=== PATIENT | male | born 1975 | race Caucasian/White ===

== ENCOUNTER 2019-07-27 04:36 | Inpatient (IN) | payer OTHER ==
[~2019-07-27] VITALS: Ht 177.8 cm; Wt 86.2 kg
--- OUTSIDE RECORDS SUMMARY | 2019-07-27 04:38 | XMS ---
PreManage Notification: DALIA DAS Security Legal Referee Events No recent Security Events currently on file [facility] There are no care providers on record at this time. Robby has no Care Guidelines for this patient. Alyssia VISIT COUNT (12 MO.) 1 [facility] Farrell TOTAL 1 NOTE: Visits indicate total known visits. ED/UCC VISIT TRACKING (12 MO.) 07/27/2019 04:37 [facility] [place] TYPE: Emergency COMPLAINT: - ABDOMINAL PAIN INPATIENT VISIT TRACKING (12 MO.) No inpatient visits to display in this time frame [id number]
[2019-07-27] MEDS ORDERED: BACTRIM DS TAB1 EACH PO (04:40)
[2019-07-27] MEDS ORDERED: HYDROXYZINE HCL25 MG PO (04:41)
[2019-07-27] MEDS ORDERED: IBUPROFEN200 M1 PO (04:42)
[2019-07-27] MEDS ORDERED: MELATONIN3 MG PO (04:42)
--- NOTE | 2019-07-27 07:50 | NUR ---
PT ARRIVED FROM ED AT THIS TIME. PT DROWSY, COOPERATIVE WITH CARE AFTER THREE REQUESTS TO OPEN MOUTH FOR TEMPERATURE.
--- NOTE | 2019-07-27 09:18 | NUR ---
PT DROWSY AND REFUSES TO ANSWER QUESTIONS ON HEALTH HISTORY AT THIS TIME.
--- NOTE | 2019-07-27 09:52 | NUR ---
PT LAYING IN BED FLOPPING AROUND AND MESSING WITH HIS GOWN. HUNG NEW BAG OF IV FLUIDS. PLACED SCD ON RIGHT LEG BUT NOT ON LEFT DUE TO REDDENED SPOT. FAMILY IN ROOM.
--- NOTE | 2019-07-27 10:36 | NUR ---
CALLED DR BUCHANAN'S CELL REGARDING HIGH BP AND PAIN. LEFT MESSAGE.
--- NOTE | 2019-07-27 11:00 | NUR ---
PT MOTHER ABLE TO ANSWER SOME HISTORY QUESTIONS PT IS STILL UNABLE. WILL ONLY OPEN EYES AND ANSWER WITH A MUMBLE.
--- NOTE | 2019-07-27 11:06 | NUR ---
Flagged down in the barrera by patient's mom, Neva. She states she and Bhargav's kids are present and are very concerned. He has a long history of heroin and meth use. Bhargav was in group home and released . Since that time he has been homeless, on the street using drugs. He has established care with Dr. Gregg owen and was last seen Jul 16. He was started on suboxone in the past, but has not continued to use. Bhargav was at [facility] yesterday and sent here for his appendicitis and wound on lower extremity. Unfortunately, when I went in to speak with Bhargav, he would not communicate. Family were concerned his EOCCO may have lapsed, I spoke Derrick, financial analyst, and she states his insurance is intact.
--- NOTE | 2019-07-27 13:07 | NUR ---
STARTED NEW IV IN AC AFTER SEVERAL ATTEMPTS. PT TOLERATED WELL BUT UNABLE TO HOLD STILL VERY LONG. LAB IN TO DRAW BLOOD CULTURES. BOLUS RUNNING. VASOTEC ADMINISTERED. WILL REASSESS BP AFTER ROSE[facility] LAB DONE.
--- NOTE | 2019-07-27 15:51 | NUR ---
MED REC COMPLETE
--- NOTE | 2019-07-27 17:13 | NUR ---
UNWRAPPED PT FROM HIS BLANKET COCOON AND NOTICED A RED RASH ON HIS CHEST ONLY. DENIES ITCHING OR PAIN. DENIES ANY OTHER SYMPTOMS. WILL MONITOR.
--- NOTE | 2019-07-27 17:47 | NUR ---
PT USED BEDSIDE URINAL. UNSTEADY ON FEET. ASSISTED WITH SURG AN. RASH ON CHEST IS ALMOST GONE. DENIES PAIN. HEADACHE GONE.
--- NOTE | 2019-07-27 19:30 | NUR ---
REPORT RECEIVED FROM DAY SHIFT RN. PT IN BED, VERY DROWSY. LITTLE RESPONSE WHEN SPOKEN TO. IVF INFUSING. FAMILY IN ROOM. CALL LIGHT IN REACH.
--- NOTE | 2019-07-27 21:00 | NUR ---
PM MEDS GIVEN. ELEVATED BP NOTED, MD AWARE. PT REMAINS IN BED, LITTLE RESPONSE TO QUESTIONS. ASSESSMENT COMPLETE. PT DENIES PAIN OR NAUSEA. SCD ON RIGHT LEG. NO RASH ON CHEST NOTED SEEN BY DAY SHIFT RN. PT REMAINS NPO. BED ALARM ON FOR SAFETY. FAMILY REMAINS IN ROOM.
--- NOTE | 2019-07-27 21:15 | HP ---
[facility] [address], [place] [address] Signed ADMISSION DATE: 07/27/2019 REASON FOR ADMISSION: Left-sided pyelonephritis and appendicitis. HISTORY OF PRESENT ILLNESS: This 44-year-old white man is well-known as having serious drug addiction including heroin and methamphetamine. He is additionally noted to recently have been essentially homeless. He has been in and out of retirement many times over the past number of months. 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 In any case, he recently been on the streets and homeless. He presented to the emergency room with left abdominal pain since approximately 8:30 p.m. The pain is considered sharp and constant without associated vomiting. He was at a [facility] for both methamphetamine and heroin. His last methamphetamine use was 2 days ago. Last heroin use 4 days ago, though his family says it was before he was released from retirement, which was a 30-day only a week ago. The patient is poorly contributory to his history, preferring not to talk too much and somewhat sedated actually. He is said to have had pain starting approximately 2 days ago in the abdomen, poorly localized. He has also had diarrhea three times. PAST MEDICAL HISTORY: Includes former smoking and drug use as previously described. SURGICAL HISTORY: Includes right wrist pinning and right shoulder pinning in the past. He is considered to have penicillin allergy in the past. MEDICATIONS: His medications more recently have included Bactrim, hydroxyzine, ibuprofen, and melatonin. His presentation in the emergency room and evaluation by Dr. Andre culminated in a CT scan of the abdomen having been performed. This showed a large nonobstructing calculus of left kidney, in the pelvis of the kidney. There was some mild stranding of peripelvic fat in the region of the left kidney, but no hydronephrosis or ureteral calculus proper. The right kidney was normal. Additionally, he was noted to have Electronically Signed By: TONY BUCHANAN MD 07/27/19 2115 PATIENT NAME: DALIA DAS HISTORY AND PHYSICAL DATE OF : 79 REPORT #: [id number] PHYSICIAN: TONY BUCHANAN MD PCP: JAMIE MCELROY MD REPORT IS CONFIDENTIAL AND NOT TO BE RELEASED WITHOUT AUTHORIZATION [facility] [address] [place] [id number] Signed probable appendicitis without free fluid or abscess. There were no other findings of concern. The interpreting radiologist was Dr. Reina. REVIEW OF SYSTEMS: He is unable to contribute much at this point, only to note that he has some abdominal pain. PHYSICAL EXAMINATION: GENERAL: This is a semi-somnolent white man accompanied by his ex-, 2 children, and his mother who is very invested in his care. HEENT: Mucous membranes are slightly dry. Trachea is midline. CHEST: Clear without wheeze or rhonchi. HEART: Regular. ABDOMEN: Nondistended. He has mild tenderness in the right lower abdomen, none in the left abdomen or flank area. EXTREMITIES: Show no clubbing, cyanosis, or edema. There is an area of edema on his left ankle area considered by nurses to be "cellulitis," but I am not certain of that myself actually. LABORATORY STUDIES: Show a white count of 7.5, hematocrit 37.3, platelets 260,000. A chem profile with potassium of 3.3, glucose of 118. Liver enzymes normal. Lipase 54. Urinalysis is markedly abnormal with 50 white cells per high-power field, 5 RBCs, some calcium oxalate crystals, negative urine casts, negative epithelial cells, trace leukocyte esterase. Review of his CT scan shows a normal-appearing liver and spleen. Left kidney has a central calcific lesion in the hilum and congested appearing kidney. I do not see perinephric fat stranding particularly however. The appendix is somewhat dilated from my review of it in transverse views. The coronal view shows a stubby somewhat dilated appendix. I do not see an obvious fecalith. ASSESSMENT: The patient is very poorly contributory to his history. He does have right lower abdominal tenderness and a CT scan interpreted by radiologist as appendicitis and left-sided pyelonephritis. Ceftriaxone antibiotic has been initiated already. I have discussed the case with Dr. Chacko, the hospitalist, for his input regarding the pyelonephritis as well as his substance abuse. My intention would be for additional fluid resuscitation and consideration for a laparoscopic appendectomy, possible open procedure today. I discussed the risks of bleeding, infection, missed diagnosis, failure of diagnosis, and need for other indicated procedures with the patient today. He could understand as well as his family including ex-, two children, and his mother who attend to him. All parties seem to understand. Electronically Signed By: TONY BUCHANAN MD 07/27/19 4226 PATIENT NAME: DALIA DAS HISTORY AND PHYSICAL DATE OF : 79 REPORT #: [id number] PHYSICIAN: TONY BUCHANAN MD PCP: JAMIE MCELROY MD REPORT IS CONFIDENTIAL AND NOT TO BE RELEASED WITHOUT AUTHORIZATION [facility] [address] [place], [place] [address] Signed MD SVITLANA Chapa/MODL /[id number] cc: MD Best Keith MD Copies: SOMMER ANDRE MD, BRIAN DO ~ Electronically Signed By: TONY BUCHANAN MD 07/27/19 2115 PATIENT NAME: DALIA DAS HISTORY AND PHYSICAL DATE OF : [birth year] REPORT #: [id number] PHYSICIAN: TONY BUCHANAN MD PCP: JAMIE MCELROY MD REPORT IS CONFIDENTIAL AND NOT TO BE RELEASED WITHOUT AUTHORIZATION
--- NOTE | 2019-07-27 21:19 | NUR ---
FAUSTO BLACKWELL, AWARE OF PT RECORDER BLOOD PRESSURES, REQUESTED AN EKG BE COMPLETED. RT NOTIFIED. PT IS PLANNED TO HAVE SURGERY TONIGHT.
--- NOTE | 2019-07-27 22:02 | NUR ---
PATIENT LEFT FLOOR WITH OR STAFF VIA BED. FAMILY IN ROOM WAITING.
--- NOTE | 2019-07-28 00:15 | NUR ---
07/28/19 0015 Melanie Ron 2328: PT ARRIVES TO PACU FROM OR WITH EYES CLOSED, ON 6 L 02 VIA MASK. PT SNORING, JAW THRUST PERFOMED. 2345: PT UNABLE TO MAINTAIN OWN AIRWAY, JAW THRUST PERFORMED. PT PERIODICALLY AROUSES TO VERBAL STIMULATION, ENCOURAGED TO CDB. 2350: PT COUGHS ON OWN AND DOZES BACK TO SLEEP. AIRWAY SUPPORT CONT WITH JAW THRUSTS.
--- NOTE | 2019-07-28 00:40 | NUR ---
PT TO ROOM FROM PACU S/P LAP APPY. REPORT RECEIVED FROM PACU NURSE. PT MOSTLY SLEEPY, WILL AROUSE TO TOUCH AND VERBAL STIMULI. FAMILY IN ROOM. SCD'S BILAT LE. 3 LAP SITES, THE TWO MIDLINE SCOPE SITES REINFORCED WITH GAUZE AND PAPER TAPE. PT DENIES PAIN OR NAUSEA. CPOX IN PLACE, 97% ON RA. RR EVEN AND UNLABORED. BP ELEVATED, MD AWARE. BED ALARM ON FOR SAFETY. CALL LIGHT IN REACH.
--- NOTE | 2019-07-28 01:20 | NUR ---
PT CALLED TO USE RESTROOM. PT WAS A LITTLE WOBLY ON HIS FEET BUT DID WELL 1PA TO RESTROOM AND BACK TO BED. FRESH ICEWATER GIVEN AND PT WOULD LIKE JELLO. HE DENIES FURTHER NEEDS AT THIS TIME. CALL LIGHT IS CLOSE AND IV IS INFUSING FINE.
--- NOTE | 2019-07-28 03:21 | NUR ---
PT RESTING IN BED WITH EYES CLOSED, OCCASIONAL SOFT SNORES. POST OP VITAL SIGNS DONE, BP REMAINS ELEVATED. PT RATES PAIN 2/10 BUT DENIES PRN PAIN MED. ASSESSMENT COMPLETE. SCOPE SITES COVERED WITH STERI STRIPS, UMBILICAL AND SUPERIOR UMBILICAL SITE REINFORCED WITH PAPER TAPE AND GAUZE. CPOX READS 97% ON RA. TEMP SLIGHTLY ELEVATED, 99.3. EXTRA BLANKETS REMOVED. PT DENIES OTHER NEEDS AT THIS TIME. CALL LIGHT IN REACH.
--- NOTE | 2019-07-28 04:17 | NUR ---
IN ROOM TO CHECK VS. PT WOKE FOR A MINUTE AND WENT BACK TO SLEEP. CALL LIGHT IS CLOSE AND IV IS INFUSING FINE.
--- NOTE | 2019-07-28 05:40 | NUR ---
PT BACK FROM PACU S/P LAP APPY 07/28 @ 0030. SCOPE SITES X 3. STERI STRIPS REINFORCED WITH GAUZE AND PAPER TAPE. C/O 11/15 ABD PAIN, DENIES PRN PAIN MEDICATION. MOSTLY SLEEPY BUT WILL RESPOND TO TOUCH AND VERBAL STIMULI. SCD'S BILAT LE. LR @ 100. PT USES THE CALL LIGHT APPROPRIATELY. AMB WITH SBA. VOID QS. MARLON LIQUIDS AND CRACKERS AT THIS TIME.
--- NOTE | 2019-07-28 06:30 | NUR ---
IN ROOM WITH SYEDA OLSEN TO GET VS AND I&O'S. REINFORCED UMBILICAL GAUZE WELL DUE TO GAUZE BEING SATURATED. PT AWOKE FOR A MOMENT AND WENT BACK TO SLEEP. IV IS INFUSING FINE AND CALL LIGHT IS CLOSE.
--- NOTE | 2019-07-28 06:59 | NUR ---
IV WAS BEEPING, ASSISTED PT TO THE RESTROOM AND BACK TO BED. IV IS INFUSING FINE NOW AND CALL LIGHT IS CLOSE. PT DENIES FURTHER NEEDS.
--- NOTE | 2019-07-28 07:43 | NUR ---
0715: Report received from Vicky MACKENZIE. Pt sleeping at this time, call mead within reach.
[2019-07-28] MEDS ORDERED: BUPRENORPHIN-N1 EACH SL (08:45)
--- NOTE | 2019-07-28 08:47 | NUR ---
NO IV PRESENT IN THE RIGHT HAND.
--- NOTE | 2019-07-28 08:52 | NUR ---
PT DROWSY, AWAKES TO VOICE AND IS ORIENTED BUT SLOW TO RESPOND. PT STATES HIS ABD PAIN IS CONTROLED AT A 5/10 AND HE DECLINES THE NEED FOR MEDICATION AT THIS TIME. SEE ASSESSMENT. GAUZE TO UPPER MID ABD INCISION SITE HAD SOME OLD DRAINAGE AND THE GAUZE WAS CHANGED, THE OTHER SITES REMAIN CLEAN AND DRY.
--- NOTE | 2019-07-28 10:26 | NUR ---
Pt resting in bed and he states that his pain is under good control at this time.
--- NOTE | 2019-07-28 10:51 | OR ---
[facility] [address], [place] [address] Signed DATE OF OPERATION: 07/27/2019 SURGEON: Tony Buchanan MD PREOPERATIVE DIAGNOSES: 1. Acute appendicitis. 2. IV drug addiction with methamphetamine, heroin. 3. Incidental urinary tract infection. POSTOPERATIVE DIAGNOSIS: Inflamed appendix, possible mucocele. PROCEDURE PERFORMED: Laparoscopic appendectomy. ANESTHESIA: General endotracheal; Chhaya Baer CRNA, and local 20 mL of 0.25% Marcaine with epinephrine. INDICATION: This 44-year-old white man is a very complicated patient, in that he has persistent methamphetamine and heroin addiction. He has been in a detox setting for the past few days, but has variably been in and out of fdc as well. He had seen Dr. Eitan Escobedo and possibly Dr. Luis Felipe Martino, for initiation of buprenorphine or other medicines for his issue of narcotic dependency, but never really followed through with medication. He was seen in the emergency room late last night and evaluated by Dr. Andre and had an affect highly suggestive of opiate and methamphetamine withdrawal. A CT scan was performed as he had diffuse abdominal pain, showing a relatively large 11 mm kidney stone in the left renal pelvis without sign of hydroureter. He had initial complaints of left-sided abdominal pain, but not focal. The examination is quite ambiguous given his clouded sensorium. He is accompanied by his ex-, two children, and his mother. The CT scan additionally showed a very dilated appendix highly suggestive of acute appendicitis. He has been fluid resuscitated, given intravenous antibiotics, and treated by the hospitalist with Vasotec for his labile hypertension. He is admitted late this evening to undergo appendectomy preferred by laparoscopic approach. The risks of bleeding, infection, failure of diagnosis, misdiagnosis, and need for other indicated procedures was reviewed in detail. He understands and wished to proceed. FINDINGS: Indeed the appendix did look inflamed. It is dilated and slick and not erythematous Electronically Signed By: TONY BUCHANAN MD 07/28/19 1051 PATIENT NAME: DALIA DAS OPERATIVE REPORT DATE OF : 79 REPORT #: [id number] PHYSICIAN: TONY BUCHANAN MD PCP: JAMIE MCELROY MD REPORT IS CONFIDENTIAL AND NOT TO BE RELEASED WITHOUT AUTHORIZATION [facility] [address] [place] [id number] Signed particularly. There is no sign of purulence associated with it. Complete appendectomy was performed. The appendix was quite dilated. In my mind, possibly mostly a mucocele rather than acute appendicitis. The pathology report remains to be determined. The terminal ileum was normal as was the colon and liver and gallbladder reasonably normal. DESCRIPTION OF PROCEDURE: The patient was brought to the operating room, given a general endotracheal anesthetic. Preoperative antibiotic cefoxitin was given, though he had received Rocephin earlier in the day. After satisfactory general endotracheal anesthesia, the abdomen was clipped and prepared with chlorhexidine solution and draped sterilely. An infraumbilical incision was made using an open Maxx cannula technique, pneumoperitoneum was achieved to a level of 14 mmHg of carbon dioxide gas. Intraabdominal inspection showed no sign of ascites or carcinomatosis. Gallbladder appeared normal. Liver was normal. There was no sign of cirrhotic change. The epigastric port was placed and cannula replaced to that site. Single hand manipulation of the cecum and the ileal area undertaken showing the tip of a congested and edematous and somewhat inflamed appendix. The right lower quadrant 5 mm port was placed with two-hand manipulation. The appendix could be more fully evaluated and found to be inflamed both chronically and possibly acutely. Various maneuvers were used to elevate the appendix and a window created between the appendix and mesoappendix. Terminal ileum appeared normal. Ultimately, the mesoappendix was secured with an Endo-PAULA stapling device. This allowed for better skeletonization of the appendix. Appendix was then fully mobilized and using an Endo-PAULA stapling device, the base of the appendix was transected, flushed with the cecum itself. The appendix was placed in an Endobag and extracted through the infraumbilical port site and examined and found to be quite markedly dilated and with more of a chronic inflammatory appearance and an acute one. Concern was maintained for possible mucocele. Irrigation was undertaken in the operative site. There was no sign of bleeding or other problems. Excess irrigational fluid was suctioned free. The trocars were removed under direct visualization showing no sign of bleeding. The infraumbilical fascial incision was reapproximated with interrupted 0 Vicryl suture. A 20 mL of 0.25% Marcaine with epinephrine was injected locally. The skin was closed with interrupted 3-0 Vicryl. Steri-Strips were applied. The patient was ultimately extubated and transferred to recovery room in good condition having suffered no complications. Sponge, needle, and instrument counts were reported as correct x3. MD SVITLANA Chapa/KELVIN Electronically Signed By: TONY BUCHANAN MD 07/28/19 1051 PATIENT NAME: DALIA DAS OPERATIVE REPORT DATE OF : 79 REPORT #: [id number] PHYSICIAN: TONY BUCHANAN MD PCP: JAMIE MCELROY MD REPORT IS CONFIDENTIAL AND NOT TO BE RELEASED WITHOUT AUTHORIZATION [facility] [address] [address] [place] [address] Signed /[id number] cc: MD Daniel Gamboa MD Copies: LUIS FELIPE MARTINO MD, SHELDON MD ~ Electronically Signed By: TONY BUCHANAN MD 07/28/19 1051 PATIENT NAME: DALIA DAS OPERATIVE REPORT DATE OF : 79 REPORT #: [id number] PHYSICIAN: TONY BUCHANAN MD PCP: JAMIE MCELROY MD REPORT IS CONFIDENTIAL AND NOT TO BE RELEASED WITHOUT AUTHORIZATION
--- NOTE | 2019-07-28 11:35 | NUR ---
Pt states his pain at rest is a 2/10 which he states is acceptable to him.
[2019-07-28] MEDS ORDERED: IBUPROFEN600 MG PO (12:23)
[2019-07-28] MEDS ORDERED: TYLENOL325 MG PO (12:23)
--- NOTE | 2019-07-28 13:01 | NUR ---
FAMILY ENGAGED IN MY VISIT-PT NOT SO. TURNED HIS HEAD AND CLOSED HIS EYES. FAMILY IS WAITING FOR DC TODAY, EXTENDED A BLESSING, WILL FOLLOW NEEDED
--- NOTE | 2019-07-28 13:51 | NUR ---
Met with Bhargav and his mom. He is awake and alert today. Plans to return to detox today with mom by private car. Jin Leonard&Lenin, Mita Tolliver, met with Bhargav this morning and is assisting him with return to detox with snf plan of Drug and alcohol treatment OP. Called detox and asked if they needed any particular paperwork and they denied. Rn will call if she needs additional infor.
--- NOTE | 2019-07-28 18:11 | EKG ---
[facility] [address] [facility] [place], [place] [address] Signed Sinus tachycardia Otherwise normal ECG No previous ECGs available Confirmed by ANA ROSA MALIK MD ([id number]) on 07/28/2019 6:11:24 PM Electronically Signed By: ANA ROSA MALIK MD 07/28/19 181 PATIENT NAME: DALIA DAS Electrocardiogram DATE OF : 79 PHYSICIAN: ANA ROSA MALIK MD REPORT #: [id number] REPORT IS CONFIDENTIAL AND NOT TO BE RELEASED WITHOUT AUTHORIZATION
== END 2019-07-28 13:40 | disposition home or self-care (01) | DRG 341 ==
LOC: ED 04:36 → MS 04:38
PROVIDERS: ADMIT Surgery
PROC: 0DTJ4ZZ Resection of Appendix, Percutaneous Endoscopic Approach (ICD-10-PCS; principal; 2019-07-27 16:00)
DX: K35.80 Unspecified acute appendicitis (principal); G93.41 Metabolic encephalopathy; F11.20 Opioid dependence, uncomplicated; F15.20 Other stimulant dependence, uncomplicated; N20.0 Calculus of kidney; E87.6 Hypokalemia; I10 Essential (primary) hypertension; L53.9 Erythematous condition, unspecified; Z59.0 Homelessness; Z88.0 Allergy status to penicillin; Z87.891 Personal history of nicotine dependence
CPT/HCPCS: 74176; 80053; 81001; 83690; 85025; 87088; 93005; 93010; 94762; 96361; 96365; 96375; 99285-25; J0131; J0330; J0694; J0696; J1644; J1885; J2060; J2270; J2405; J2704; J3475; J3480; J7030; J7060; J7120

== ENCOUNTER 2019-07-30 10:25 | Emergency (ER) | payer OTHER ==
[~2019-07-30] VITALS: Ht 177.8 cm; Wt 86.2 kg
[~2019-07-30 10:25] MED LIST: BACTRIM DS TAB1 EACH PO; BUPRENORPHIN-N1 EACH SL; HYDROXYZINE HCL25 MG PO; IBUPROFEN200 M1 PO; IBUPROFEN600 MG PO; MELATONIN3 MG PO; TYLENOL325 MG PO
--- OUTSIDE RECORDS SUMMARY | 2019-07-30 10:28 | XMS ---
PreManage Notification: DALIA DAS Security Appeals And Generalist Clerk Events No recent Security Events currently on file CRITERIA MET - Group Notification - PDMP - [facility] - 2 Visits in 30 Days CARE PROVIDERS There are no care providers on record at this time. Robby has no Care Guidelines for this patient. Alyssia VISIT COUNT (12 MO.) 2 [facility] [place] [facility]. TOTAL 2 NOTE: Visits indicate total known visits. ED/C VISIT TRACKING (12 MO.) 07/30/2019 10:[address] [facility] [place] TYPE: Emergency COMPLAINT: - EXTREMITY SWELLING NON INJURY 07/27/2019 04:37 [facility] [place] TYPE: Emergency COMPLAINT: - APPENDICITIS, PYLEONEHITIS INPATIENT VISIT TRACKING (12 MO.) 07/27/2019 14:56 [facility] [place] TYPE: Medical Surgical COMPLAINT: - APPENDICITIS, PYELONEPHRITIS DIAGNOSES: - Unspecified acute appendicitis - Opioid dependence, uncomplicated - Essential (primary) hypertension - Generalized abdominal pain - Calculus of kidney - Personal history of nicotine dependence - Hypokalemia - Personal history of nicotine dependence - Other stimulant dependence, uncomplicated - Metabolic encephalopathy - Hypokalemia - Erythematous condition, unspecified - Calculus of kidney - Allergy status to penicillin - Homelessness - Allergy status to penicillin - Essential (primary) hypertension - Homelessness - Other stimulant dependence, uncomplicated - Opioid dependence, uncomplicated - Unspecified acute appendicitis - Metabolic encephalopathy - Erythematous condition, unspecified [email or web address]
== END 2019-07-30 13:00 | disposition home or self-care (01) ==
LOC: ED 10:25
DX: M79.89 Other specified soft tissue disorders (principal); I10 Essential (primary) hypertension; Z87.891 Personal history of nicotine dependence; Z88.0 Allergy status to penicillin
CPT/HCPCS: 36415; 80053; 83880; 85025; 99283

== ENCOUNTER 2021-10-09 01:08 | Emergency (ER) | payer OTHER ==
[~2021-10-09] VITALS: Ht 177.8 cm; Wt 95.0 kg
[~2021-10-09 01:08] MED LIST changes: +HYDROCHLOROTH12.5 MG PO; +LISINOPRIL20 MG PO; +METOPROLOL SUCC25 MG PO
--- OUTSIDE RECORDS SUMMARY | 2021-10-09 01:10 | XMS ---
PreManage Notification: DALIA DAS Security Blue Crabber Events No recent Security Events currently on file CRITERIA MET - PDMP - Group Notification CARE PROVIDERS There are no care providers on record at this time. Robby has no Care Guidelines for this patient. Care History Medical/Surgical 08/02/2019 [facility] CASE MANAGEMENT REFERRAL MADE- PATIENT HAS EOCCO AND NO PCP. [facility]. V[facility] (12 MO.) [facility] T[facility] 3 NOTE: Visits indicate total known visits. ED/UCC VISIT TRACKING (12 MO.) [facility] [place] [facility] COMPLAINT: - COLD SYMPTOMS 07/15/2021 02:59 [facility] [place] TYPE: Emergency COMPLAINT: - SYNCOPE/FACIAL INJURIES DIAGNOSES: - Allergy status to sulfonamides - Bathroom of unspecified non-institutional (private) residence as the place of occurrence of the external cause - Other nonmedicinal substance allergy status - Other intermediate (current) drug therapy - Fall on same level, unspecified, initial encounter - Allergy status to penicillin - Personal history of nicotine dependence - Essential (primary) hypertension - Fracture of nasal bones, initial encounter for closed fracture - Syncope and collapse 06/30/2021 00:18 [facility] [place] TYPE: Emergency COMPLAINT: - ALLERGIC REACTION, HIGH BP DIAGNOSES: - Pain in left foot - Other intermediate frame tender (current) drug therapy - Allergy status to other drugs, medicaments and biological substances - Adverse effect of other systemic antibiotics, initial encounter - Low back pain - Allergy status to penicillin - Pain in right foot - Local infection of the skin and subcutaneous tissue, unspecified - Personal history of nicotine dependence - Dorsalgia, unspecified - Essential (primary) hypertension INPATIENT VISIT TRACKING (12 MO.) No inpatient visits to display in this time frame [email or web address]
== END 2021-10-09 02:40 | disposition home or self-care (01) ==
LOC: ED 01:08
DX: U07.1 COVID-19 (principal); J20.8 Acute bronchitis due to other specified organisms; I10 Essential (primary) hypertension; Z87.891 Personal history of nicotine dependence; Z88.8 Allergy status to other drugs, medicaments and biological substances; Z88.0 Allergy status to penicillin; Z88.2 Allergy status to sulfonamides; Z79.899 Other long term (current) drug therapy
CPT/HCPCS: 71046; 81001; 83735; 85025; 99284-25; U0003

== ENCOUNTER 2023-07-31 13:09 | Emergency (ER) | payer OTHER ==
[~2023-07-31] VITALS: Ht 177.8 cm; Wt 104.0 kg
[~2023-07-31 13:09] MED LIST changes: +METHADONE HCL5 MG PO
--- OUTSIDE RECORDS SUMMARY | 2023-07-31 13:16 | XMS ---
PreManage Notification: DALIA DAS Security Director Of Casework Services Events No recent Security Events currently on file CRITERIA MET - Group Notification CARE PROVIDERS -Dora- Dentist: Distribution Lineman Pending Sale To [facility] PHONE: [phone] Robby has no Care Guidelines for this patient. Care History Medical/Surgical 08/02/2019 [facility] CASE MANAGEMENT REFERRAL MADE- PATIENT HAS [facility] AND NO PCP. E.Gabriele VISIT COUNT (12 MO.) 1 [facility]. TOTAL 1 NOTE: Visits indicate total known visits. ED/UCC VISIT TRACKING (12 MO.) 07/31/2023 13:10 [facility] TYPE: Emergency COMPLAINT: - SPIDER BITE R FOREARM INPATIENT VISIT TRACKING (12 MO.) No inpatient visits to display in this time frame [id number]
[2023-07-31] MEDS ORDERED: CLEOCIN HCL300 MG PO (14:36)
[2023-07-31] MEDS ORDERED: NAPROSYN500 MG PO (14:36)
[2023-07-31 14:58] LABS: BASOPHILS 0.5 % (0-2); EOSINOPHILS 1.8 % (0-6); LYMPHOCYTES 12.2 % (24-44); MCH 28.5 (27-36); MCHC 34.3 g/dl (30-36); MCV 83.1 fl (81-99); MONOCYTES 9.5 % (0-12); PLATELET COUNT 194 K/uL (140-440); RBC 4.22 M/ul (4.3-5.7)
[2023-07-31 15:07] LABS: ANION GAP 13.5 (7-21); BUN/CREATININE RATIO 14.03 (6.0-28.6); CREATININE, SERUM 1.14 mg/dL (0.70-1.30); POTASSIUM 3.5 mmol/L (3.5-5.1)
[2023-07-31 16:35] VITALS: BP 143/86
== END 2023-07-31 16:35 | disposition home or self-care (01) ==
LOC: ED 13:09
PROVIDERS: Emergency Medicine
DX: L02.413 Cutaneous abscess of right upper limb (principal); I10 Essential (primary) hypertension; Z87.891 Personal history of nicotine dependence; Z88.0 Allergy status to penicillin; Z88.2 Allergy status to sulfonamides; Z88.1 Allergy status to other antibiotic agents
CPT/HCPCS: 10060; 36415; 80048; 85025; 85060; 99283-25